=== PATIENT | female | born 1930 | race Caucasian/White ===

== ENCOUNTER 2019-12-12 00:43 | Emergency (ER) | payer MEDICARE, OTHER ==
[~2019-12-12] VITALS: Ht 162.6 cm; Wt 85.3 kg
--- OUTSIDE RECORDS SUMMARY | 2019-12-12 00:46 | XMS REPORT ---
Author Author [facility] Address Unknown Phone Unavailable Care Team Providers Care Stick Feeder Name Role Phone Unavailable Unavailable Problems This patient has no known problems. Allergies, Adverse Reactions, Alerts This patient has no known allergies or adverse reactions. Medications This patient has no known medications.
[2019-12-12] MEDS ORDERED: BACITRACIN ZINC 15 GM OINT TOP ONE (01:30)
[2019-12-12] MEDS ORDERED: BACITRACIN ZINC 0.9GM TP ONE (01:41)
[2019-12-12] MEDS ORDERED: ELIQUIS5 M1 (01:55)
[2019-12-12] MEDS ORDERED: SYNTHROID88 MCG PO (01:55)
[2019-12-12] MEDS ORDERED: CRESTOR10 MG (01:55)
[2019-12-12] MEDS ORDERED: LEXAPRO10 MG PO (01:55)
[2019-12-12] MEDS ORDERED: PRIMIDONE1 GM ×2 (01:55)
[2019-12-12] MEDS ORDERED: LOSARTAN POTAS100 MG PO (01:55)
[2019-12-12] MEDS ORDERED: PRILOSEC OTC20 MG (01:55)
[2019-12-12] MEDS ORDERED: TOPAMAX25 MG (01:55)
--- NOTE | 2019-12-12 02:24 | NUR ---
DAUGHTER HELPING PT IN RESTROOM TO OBTAIN URINE SPECIMEN
--- NOTE | 2019-12-12 02:41 | Diagnostic Imaging Report ---
CT BRAIN [facility] HISTORY: Fall, trauma COMPARISON: None. Technique: Noncontrast axial scans were obtained from skull base to the vertex. Coronal and sagittal reconstructions obtained from the axial data. One or more of the following dose reduction techniques were used: Automated exposure control, adjustment of the mA and/or kV according to patient size, and/or utilization of iterative reconstruction technique. DISCUSSION: Scalp/Skull: Unremarkable. Brain sulci: Mildly prominent. Ventricles: Compensatory dilatation. Extra-axial spaces: No masses or fluid collections. Carotid siphon calcifications are present. Parenchyma: Moderate bilateral deep white matter hypodensity is likely chronic microvascular ischemic change. Otherwise, no masses, hemorrhage, or large vascular territory acute infarct. Dural sinuses: No abnormal densities. Sellar/Suprasellar region: Intact. Skull base: Intact. Incidental findings: Bilateral ocular lens replacement. IMPRESSION: 1. No acute intracranial abnormalities. 2. Moderate supratentorial chronic microvascular ischemic change. Generalized cerebral volume loss. Signed by: Dr. Peter Hess M.D. on 12/12/2019 2:38 AM
--- NOTE | 2019-12-12 02:48 | Diagnostic Imaging Report ---
CT C-SPINE W/O - [facility] HISTORY: Fall, trauma COMPARISON: None. TECHNIQUE: CT of the cervical spine without contrast. Sagittal and coronal reformations were created. One or more of the following dose reduction techniques were used: Automated exposure control, adjustment of the mA and/or kV according to patient size, and/or utilization of iterative reconstruction technique. FINDINGS: Mild bone demineralization limits evaluation. Cervical lordosis is preserved. There is no significant scoliosis. No definite acute fracture or compression deformity is seen The craniocervical junction is intact. No gross spinal canal masses are seen. The paravertebral and paraspinal soft tissues are unremarkable. Mild to moderate multilevel spondylotic changes are associated with multilevel advanced bilateral facet arthrosis. There is associated grade 1 anterolisthesis of C3 on C4, C4 on C5, C5 on C6, and C6 on C7. There is mild scarring in the lung apices. Mild to moderate bilateral carotid bulb calcified plaque is present. Surgical clips are seen adjacent to the right carotid bulb. IMPRESSION: 1. No acute osseous abnormalities. 2. 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 Signed by: Dr. Peter Hess M.D. on 12/12/2019 2:43 AM
--- NOTE | 2019-12-12 02:53 | Diagnostic Imaging Report ---
EXAMINATION: CXR 2 VIEW - [facility] INDICATION: Fall, closed head injury COMPARISON: None FINDINGS: TUBES and LINES: None. LUNGS: Lungs are well inflated. There is no evidence of pneumonia or pulmonary edema. Minimal patchy bibasilar opacities, likely atelectasis. PLEURA: No pleural effusion or pneumothorax. HEART AND MEDIASTINUM: The cardiomediastinal silhouette is unremarkable. There are atherosclerotic calcifications within the aorta. BONES AND SOFT TISSUES: No acute osseous lesion. Soft tissues are unremarkable. UPPER ABDOMEN: No free air under the diaphragm. IMPRESSION: No acute thoracic abnormality. Signed by: Dr. Tavo Bahena MD on 12/12/2019 2:50 AM
[2019-12-12] MEDS ORDERED: ACETAMINOPHEN 325 MG TAB PO ONE (03:00)
--- NOTE | 2019-12-12 03:12 | NUR ---
DC'D SL WITHOUT DIFF. NO REDNESS/SWELLING/BLEEDING TO SITE. CATH INTACT. PT TOLERATED WELL
[2019-12-12] MEDS ORDERED: ACETAMINOPHEN 325 MG TAB ONE (03:13)
--- NOTE | 2019-12-12 03:13 | NUR ---
ALL TEST RESULTS COMPLETE PER MD
[2019-12-12 03:21] VITALS: BP 159/78
== END 2019-12-12 03:26 | disposition home or self-care (01) ==
LOC: FSED 00:43
DX: S01.01XA Laceration without foreign body of scalp, initial encounter (principal); W01.0XXA Fall on same level from slipping, tripping and stumbling without subsequent striking against object, initial encounter; Y92.008 Other place in unspecified non-institutional (private) residence as the place of occurrence of the external cause; I10 Essential (primary) hypertension; I48.0 Paroxysmal atrial fibrillation; E78.5 Hyperlipidemia, unspecified; E03.4 Atrophy of thyroid (acquired)
CPT/HCPCS: 70450; 71046; 72125; 80048; 80076; 81003; 82553; 83880; 84484; 85025; 85610; 93005; 99284